=== PATIENT | male | born 1980 | race Caucasian/White ===

== ENCOUNTER 2021-03-10 00:38 | Emergency (ER) | payer OTHER ==
[~2021-03-10 00:38] MED LIST: BENADRYL 25MG C25 MG PO; LODINE CAP 300300 MG PO; NEOSPORIN OINT15 GM TOP
[2021-03-10 01:42] LABS: HEMOGLOBIN 15.2 gm/dl (14.0-17.5); RED BLOOD COUNT 4.77 M/UL (4.20-5.50); WHITE BLOOD COUNT 8.8 K/UL (4.5-11.0)
[2021-03-10 02:17] LABS: BUN/CREATININE RATIO 16 (0-10)
== END 2021-03-10 05:37 | disposition left against medical advice (07) ==
LOC: ER1 00:38
PROVIDERS: Family Medicine
DX: Z53.21 Procedure and treatment not carried out due to patient leaving prior to being seen by health care provider (principal)
CPT/HCPCS: 71045; 80053; 82550; 82553; 83874; 84484; 85025; 93005